=== PATIENT | female | born 1960 | race Caucasian/White ===

== ENCOUNTER 2017-06-28 23:26 | Emergency (ER) | payer SELFPAY ==
[~2017-06-28] VITALS: Ht 165.1 cm; Wt 56.7 kg
[2017-06-29 00:20] VITALS: BP 128/88
--- NOTE | 2017-06-29 00:20 | NUR ---
Patient discharged to home in stable conditon WITH FRIEND TAKING PATIENT HOME. Written and verbal after care instructions given. Patient verbalizes understanding of instructions. WALKED OUT OF ER WITH STEADY GAIT
== END 2017-06-29 00:21 | disposition home or self-care (01) ==
LOC: ER 23:29
DX: S01.81XA Laceration without foreign body of other part of head, initial encounter (principal); W17.89XA Other fall from one level to another, initial encounter; Y93.39 Activity, other involving climbing, rappelling and jumping off; Y92.89 Other specified places as the place of occurrence of the external cause; Y99.8 Other external cause status
CPT/HCPCS: A4217; A4663